=== PATIENT | male | born 1990 | race African-American/Black ===

== ENCOUNTER 2018-02-08 17:22 | Emergency (ER) | payer SELFPAY ==
[~2018-02-08] VITALS: Ht 185.4 cm; Wt 113.4 kg
[2018-02-08 17:36] VITALS: BP 133/72
[2018-02-08] MEDS ORDERED: cefTRIAXone SOD 1,000 MG VL IM ONE (19:00)
[2018-02-08] MEDS ORDERED: ACETAMINOPHEN/CODEINE#3 (300/30mg) TAB PO ONE (19:00)
[2018-02-08] MEDS ORDERED: LIDOCAINE 1%HCL (LOCAL ANESTH) 10 ML MDV ONE (19:37)
== END 2018-02-08 19:49 | disposition home or self-care (01) ==
LOC: ER 17:26
DX: J03.90 Acute tonsillitis, unspecified (principal)
CPT/HCPCS: 96372; 99283; J0696; J2001

== ENCOUNTER 2018-06-11 18:20 | Emergency (ER) | payer MEDICARE, OTHER ==
[~2018-06-11] VITALS: Ht 182.9 cm; Wt 122.5 kg
[2018-06-11 18:27] VITALS: BP 151/73
== END 2018-06-12 00:25 | disposition home or self-care (01) ==
LOC: ER 18:45
DX: J03.80 Acute tonsillitis due to other specified organisms (principal); B96.89 Other specified bacterial agents as the cause of diseases classified elsewhere; H92.01 Otalgia, right ear

== ENCOUNTER 2018-09-07 19:00 | Emergency (ER) | payer SELFPAY ==
[~2018-09-07] VITALS: Ht 182.9 cm; Wt 131.5 kg
[2018-09-08] MEDS: IOHEXOL 300 MG/ML 100ML BOTTLE IJ ONE (00:09)
[2018-09-08] MEDS: MORPHINE SULF INJ 2 MG/ML SYRINGE 1ML IV ONE (00:22)
[2018-09-08] MEDS: ONDANSETRON HCL 4 MG/2 ML VIAL IV ONE (00:23)
[2018-09-08 00:36] LABS: Basophils # (auto) 0 uL; Eosinophils # (auto) 0.3 uL; Nucleated Red Blood Cells % 0.1 %
[2018-09-08 00:37] LABS: Basophils % (auto) 0.5 % (0.0-2.0); Eosinophils % (auto) 4.4 % (0.0-7.0); Hematocrit 43.3 % (41.0-53.0); Hemoglobin 14.3 g/dL (13.5-17.5); Lymphocytes # (auto) 2.3 uL; Lymphocytes % (auto) 38.2 % (10.0-50.0); Mean Corpuscular Hemoglobin 26.6 pg (28.0-32.0); Mean Corpuscular Hgb Conc. 33.1 g/dL (32.0-36.0); Mean Corpuscular Volume 80.4 fL (80.0-100.0); Monocytes # (auto) 0.7 uL; Monocytes % (auto) 11.4 % (0.0-12.0); Neutrophils # (auto) 2.8 uL; Neutrophils % (auto) 45.5 % (37.0-80.0); Platelet Count (auto) 217 10^3/uL (140-450); Red Blood Cells 5.39 10^6/uL (4.5-5.90); Red Cell Distribution Width 15.2 % (11.8-14.3); White Blood Cell 6.1 10^3/uL (4.4-10.8)
[2018-09-08] MEDS: diphenhdrAMINE HCL 50 MG/1 ML VL IV ONE (00:40)
[2018-09-08] MEDS: methylPREDNISolone SOD SUCC 125 MG/2 ML VL IV ONE (00:41)
[2018-09-08 00:55] LABS: Albumin 3.5 g/dL (3.4-5.0); Calcium 8.5 mg/dL (8.5-10.1); Potassium 3.9 mmol/L (3.5-5.1)
[2018-09-08 00:57] LABS: BUN/Creatinine Ratio 23.2
[2018-09-08 01:00] LABS: Bilirubin, Total 0.4 mg/dL (0.2-1.0); Total Protein 7.7 g/dL (6.4-8.2)
[2018-09-08 01:55] VITALS: BP 151/90
[2018-09-08] MEDS: cefTRIAXone 1GM/50ML D5W 50 ML IV ONE (02:27)
[2018-09-08] MEDS: SODIUM CHLORIDE 0.9% 1,000 ML IV ONE (03:08)
== END 2018-09-08 03:25 | disposition home or self-care (01) ==
LOC: ER 19:05
DX: J32.0 Chronic maxillary sinusitis (principal); L03.211 Cellulitis of face
CPT/HCPCS: 36415; 70491; 80053; 83605; 85025; 87040; 96365; 96375; 99284; J0696; J1200; J2270; J2405; J2930; J7030; Q9967

== ENCOUNTER 2019-08-16 09:37 | Emergency (ER) | payer SELFPAY ==
[~2019-08-16] VITALS: Ht 182.9 cm; Wt 136.1 kg
[2019-08-16 09:51] VITALS: BP 145/89
== END 2019-08-16 10:32 | disposition home or self-care (01) ==
LOC: ER 09:37
DX: H65.03 Acute serous otitis media, bilateral (principal)